=== PATIENT | male | born 1995 | race African-American/Black ===

== ENCOUNTER 2024-02-24 10:57 | Emergency (ER) | payer SELFPAY ==
[~2024-02-24] VITALS: Ht 170.2 cm; Wt 101.8 kg
[2024-02-24 11:02] VITALS: BP 118/77; PULSE 61; RESP 18; TEMP 98.6
[2024-02-24] MEDS: LIDOCAINE 5% TRANSDERMAL PATCH TD ONE (12:39)
[2024-02-24] MEDS: IBUPROFEN 600 MG TABLET PO ONE (12:40)
[2024-02-24] MEDS: BACLOFEN 10 MG TABLET PO ONE (12:40)
[2024-02-24] MEDS ORDERED: IBUP-1492 PO (14:09)
[2024-02-24] MEDS ORDERED: BACL10TA PO (14:10)
[2024-02-24] MEDS ORDERED: LIDO700A15 TP (14:10)
== END 2024-02-24 15:22 | disposition home or self-care (01) ==
LOC: EMS 10:57
DX: M54.9 Dorsalgia, unspecified (principal); V99.XXXA Unspecified transport accident, initial encounter; Y93.89 Activity, other specified; Y92.89 Other specified places as the place of occurrence of the external cause; Y99.8 Other external cause status
CPT/HCPCS: 72040; 72100; 99284; Z7502; Z7610